=== PATIENT | female | born 1945 | race Caucasian/White ===

== ENCOUNTER 2018-06-08 13:30 | Outpatient (REF) | payer MEDICARE, OTHER, SELFPAY ==
[2018-06-08 14:11] LABS: ALT 30 U/L (12-78); AST 24 U/L (15-37); Albumin 3.9 g/dL (3.4-5.0); Alkaline Phosphatase 80 U/L (46-116); Anion Gap 7.6 mmol/L (3-11); BUN 24 mg/dL (7-18); Bilirubin, Total 0.3 mg/dL (0.2-1.0); CO2 28.4 mmol/L (21.0-32.0); CREATININE 0.82 mg/dL (0.55-1.02); Calcium 9.2 mg/dL (8.5-10.1); Chloride 105 mmol/L (98-107); Cholesterol 228 mg/dL (50-200); Glucose 98 mg/dL (70-100); HDL Cholesterol 76 mg/dL (40-60); LDL CHOLESTEROL 138 mg/dL (<100); Potassium 4.6 mmol/L (3.5-5.1); Sodium 141 mmol/L (136-145); Total Protein 7.2 g/dL (6.4-8.2); Triglyceride 109 mg/dL (30-150)
[2018-06-08 14:51] LABS: HCT 43.1 % (36.0-46.0); HGB 14.1 g/dL (12.0-15.5); Mean Corp. HGB Concentration 32.7 g/dL (32.0-36.0); Mean Corpuscular Volume 94.7 fL (80-95); Mean Platelet Volume 11.3 fL (8.0-11.0); Platelet Count 258 x1000/uL (130-400); RBC 4.55 m/cumm (4.00-5.20); RBC Distribution Width 13.2 % (11.7-14.6); White Blood Cell Count 6.12 k/cumm (4.4-10.8)
== END 2018-06-08 13:50 ==
LOC: NCHCN 13:30
PROVIDERS: Visit Provider Nurse Practitioner
DX: E78.5 Hyperlipidemia, unspecified; M85.80 Other specified disorders of bone density and structure, unspecified site
CPT/HCPCS: 80053; 80061; 83721; 85027

== ENCOUNTER 2018-07-10 00:47 | Outpatient (CLI) | payer MEDICARE, OTHER, SELFPAY ==
--- NOTE | 2018-07-10 13:20 | DI.MAMMO_ITS ---
SYMPTOMS/DIAGNOSIS: SCREENING, Z12.31, [facility], Z00.00 MAMMOGRAM: Mammograms were interpreted according to the usual protocol including computer analysis with CAD system, tomosynthesis and C view imaging. The breasts are of moderate density with fairly symmetrical distribution of fibroglandular tissue. No dominant mass or clumped microcalcification identified in either breast. Current examination is compared with the previous examinations including June 2017 and there has been no gross interval change in appearance in comparison with the previous studies. CONCLUSION: No specific evidence of malignancy at this time. Routine screening examinations are suggested at yearly intervals in this age group according to the ACS/ACR guidelines. Category 1, breast density category B. SA ASSESSMENT OF FINDINGS: Negative. Category 1. Patient will receive a letter notifying them of these results. BI-RADS category B. There are scattered areas of fibroglandular density.
== END 2018-07-10 01:07 ==
PROVIDERS: Visit Provider Nurse Practitioner
DX: Z12.31 Encounter for screening mammogram for malignant neoplasm of breast (principal)
CPT/HCPCS: 77063; 77067

== ENCOUNTER 2018-09-05 11:29 | Outpatient (REF) | payer MEDICARE, OTHER, SELFPAY ==
[2018-09-05 12:40] LABS: Cholesterol 203 mg/dL (50-200); HDL Cholesterol 76 mg/dL (40-60); LDL CHOLESTEROL 103 mg/dL (<100); Triglyceride 78 mg/dL (30-150)
== END 2018-09-05 11:49 ==
LOC: NCHCN 11:29
PROVIDERS: Visit Provider Nurse Practitioner
DX: E78.5 Hyperlipidemia, unspecified (principal)
CPT/HCPCS: 80061; 83721

== ENCOUNTER 2019-07-03 13:02 | Outpatient (REF) | payer MEDICARE, SELFPAY ==
[2019-07-03 14:42] LABS: Anion Gap 10.2 mmol/L (3-11); BUN 18 mg/dL (7-18); CO2 25.8 mmol/L (21.0-32.0); CREATININE 0.84 mg/dL (0.55-1.02); Calcium 9.4 mg/dL (8.5-10.1); Chloride 107 mmol/L (98-107); Glucose 104 mg/dL (70-100); Potassium 4.7 mmol/L (3.5-5.1); Sodium 143 mmol/L (136-145)
== END 2019-07-03 13:22 ==
LOC: NCHCN 13:02
PROVIDERS: PCP Nurse Practitioner Family; Visit Provider Nurse Practitioner Family
DX: E78.5 Hyperlipidemia, unspecified (principal)
CPT/HCPCS: 80048

== ENCOUNTER 2019-07-26 01:30 | Outpatient (CLI) | payer MEDICARE, SELFPAY ==
--- NOTE | 2019-07-26 15:59 | DI.DEXA_ITS ---
EXAM: XR DEXA BONE DENSITY W/WO MINOO INDICATION: ASYMPTOMATIC POSTMENOPAUSAL STATUS, Z78.0, OSTEOPENIA, M85.80. COMPARISON: DEXA BONE DENSITY WITH MINOO from 11/19/2009 TECHNIQUE: 2D digital imaging was performed. FINDINGS: The MINOO image shows no evidence of compression fractures. The bone mineral density measurements of the lumbar spine correspond to a total T-score of -1.1, in t he osteopenic range. This is not significantly changed from the previous exam. The L3 vertebral bod y was excluded due to overlying metallic artifact. The bone mineral density measurements of the left hip correspond to a total T-score of -0.7 and a fem oral neck T-score of -0.8, in the normal range. This represents an 8.0 percent decrease when compare d with 2009. The left forearm bone mineral density measurements correspond to a total T-score of -0.1 and T-score of the distal 3rd of 0.1, in the normal range. The forearm bone density has decreased by 9.6 percent when compared with the previous exam. IMPRESSION: Normal bone mineral density of left forearm and left hip with decreases when compared with the previo us exam. Stable osteopenia of the lumbar spine.
== END 2019-07-26 01:50 ==
PROVIDERS: PCP Nurse Practitioner Family; Visit Provider Nurse Practitioner Family
DX: M85.88 Other specified disorders of bone density and structure, other site (principal); Z78.0 Asymptomatic menopausal state
CPT/HCPCS: 77080

== ENCOUNTER 2019-09-11 02:40 | Outpatient (CLI) | payer MEDICARE, SELFPAY ==
--- NOTE | 2019-09-11 12:23 | DI.MAMMO_ITS ---
EXAM: MG MAMMO SCREENING CLINICAL HISTORY: SCREENING, Z12.39. TECHNIQUE: Full field digital CC and MLO mammographic images were obtained with 3D tomosynthesis and utilizing computer aided detection (CAD). COMPARISON: 2009 through 2017 FINDINGS: Breast Density - Category B - Scattered areas of fibroglandular density. Masses/Architectural Distortion: None seen. Microcalcifications: No suspicious pleomorphic-type calcifications are seen. Skin Thickening/Nipple Retraction: None. Axilla: Unremarkable. IMPRESSION: 1. BI-RADS category 1, negative. No significant interval change with no specific features of maligna ncy noted. 2. Unless there is more urgent need, screening mammography is recommended, as per [employer] guidelines. BI-RADS Cat 1 - Negative Breast Density - Category B - Scattered areas of fibroglandular density A negative radiographic report should not delay biopsy if a dominant or clinically suspicious mass is present. Up to ten percent of cancers are not identified on mammography. A negative report may reinforce clinical impression. Adenosis and dense breasts may obscure an underlying neoplasm. False positive reports average 6 to 10%. Patient will receive a letter notifying them of these results.
== END 2019-09-11 03:00 ==
PROVIDERS: PCP Nurse Practitioner Family; Visit Provider Nurse Practitioner Family
DX: Z12.31 Encounter for screening mammogram for malignant neoplasm of breast (principal)
CPT/HCPCS: 77063; 77067

== ENCOUNTER 2019-10-16 16:46 | Outpatient (REF) | payer MEDICARE, SELFPAY ==
[2019-10-16 20:18] LABS: HCT 43.7 % (36.0-46.0); HGB 14.3 g/dL (12.0-15.5); Mean Corp. HGB Concentration 32.7 g/dL (32.0-36.0); Mean Corpuscular Hemoglobin 30.7 pg (27.0-33.0); Mean Corpuscular Volume 93.8 fL (80-95); Mean Platelet Volume 10.7 fL (8.0-11.0); Platelet Count 303 x1000/uL (130-400); RBC 4.66 m/cumm (4.00-5.20); RBC Distribution Width 13.3 % (11.7-14.6)
[2019-10-16 20:41] LABS: Anion Gap 9.7 mmol/L (3-11); BUN 21 mg/dL (7-18); CO2 27.3 mmol/L (21.0-32.0); CREATININE 0.64 mg/dL (0.55-1.02); Calcium 9.7 mg/dL (8.5-10.1); Chloride 105 mmol/L (98-107); Glucose 93 mg/dL (74-106); Potassium 4.9 mmol/L (3.5-5.1); Sodium 142 mmol/L (136-145); TSH (W/Ref FT4) 0.84 uIU/mL (0.36-3.74)
== END 2019-10-16 17:06 ==
LOC: NCHCN 16:46
PROVIDERS: PCP Nurse Practitioner Family; Visit Provider Nurse Practitioner Family
DX: R00.2 Palpitations (principal)
CPT/HCPCS: 80048; 85027; 84443

== ENCOUNTER 2019-11-15 02:13 | Outpatient (CLI) | payer MEDICARE, SELFPAY ==
--- NOTE | 2019-11-21 09:11 | W.HOLTRPT ---
Date of service: 11/21/19 Time of Service: 09:12 Holter Monitor Report Holter Monitor Note: The patient underwent Holter monitoring for a period of 48 hours and 6 minutes The predominant rhythm was sinus. Average heart rate was 84. Minimum heart rate was 59 and maximum 140. There were rare ventricular ectopic beats. There was no ventricular tachycardia There were very rare atrial premature beats there was one atrial triplet. There was no supraventricular tachycardia Patient diary reported episodes of skipped beats. This corresponded to both PVCs and also to normal sinus rhythm
== END 2019-11-15 02:33 ==
PROVIDERS: PCP Nurse Practitioner Family; Visit Provider Nurse Practitioner Family
DX: I49.3 Ventricular premature depolarization (principal); I49.1 Atrial premature depolarization
CPT/HCPCS: 93225

== ENCOUNTER 2019-11-17 14:26 | Outpatient (CLI) | payer MEDICARE, SELFPAY | END 2019-11-17 14:46 | PROVIDERS: PCP Nurse Practitioner Family; Visit Provider Nurse Practitioner Family | DX: I49.3 Ventricular premature depolarization (principal); I49.1 Atrial premature depolarization | CPT/HCPCS: 93226 ==

== ENCOUNTER 2019-11-21 09:11 | Outpatient (CLI) | payer MEDICARE, SELFPAY | END 2019-11-21 09:31 | PROVIDERS: PCP Nurse Practitioner Family; Referring Provider Nurse Practitioner Family; Visit Provider Internal Medicine Cardiovascular Disease | DX: I49.3 Ventricular premature depolarization (principal); I49.1 Atrial premature depolarization | CPT/HCPCS: 93227 ==

== ENCOUNTER → 2020-03-03 10:43 | Outpatient (BNVA) | payer MEDICARE, SELFPAY | PROVIDERS: PCP Nurse Practitioner Family; Referring Provider Nurse Practitioner Family; Visit Provider Internal Medicine Cardiovascular Disease | DX: R00.2 Palpitations (principal); I34.0 Nonrheumatic mitral (valve) insufficiency | CPT/HCPCS: 99214 ==

== ENCOUNTER 2020-09-12 04:14 | Outpatient (CLI) | payer MEDICARE, SELFPAY ==
--- NOTE | 2020-09-12 13:38 | DI.MAMMO_ITS ---
EXAM: MG MAMMO SCREENING CLINICAL HISTORY: SCREENING,Z12.39 TECHNIQUE: Bilateral full field digital CC and MLO mammographic images were obtained with 3D tomosyn thesis and utilizing computer aided detection (CAD). COMPARISON: Available for comparison. FINDINGS: Masses/Architectural Distortion: None seen. Microcalcifications: No suspicious pleomorphic-type are seen. Skin Thickening/Nipple Retraction: None. IMPRESSION: 1. No significant interval change with no specific features of malignancy noted. 2. Unless there is more urgent need, screening mammography is recommended, as per [employer] guidelines. BI-RADS Category 1 - Negative Breast Density - Category B - Scattered areas of fibroglandular density Breast density category C or D implies that the patient has dense breast tissue. Dense breast tissue is very common and is not abnormal but dense breast tissue can make it harder to find cancer on a ma mmogram. Also, dense breast tissue may increase their breast cancer risk. This information about the result of the mammogram report was provided to the patient to raise their awareness. Use this report when you speak with the patient about their risks for breast cancer, which includes their family hist ory. At that time, you may recommend for more screening tests (Ultrasound or MRI) as they might be us eful based on their risk. A negative radiographic report should not delay biopsy if a dominant or clinically suspicious mass is present. Up to ten percent of cancers are not identified on mammography. A negative report may reinforce clinical impression. Adenosis and dense breasts may obscure an underlying neoplasm. False positive reports average 6 to 10%. Patient will receive a letter notifying them of these results.
== END 2020-09-12 04:34 ==
PROVIDERS: PCP Nurse Practitioner Family; Visit Provider Nurse Practitioner Family
DX: Z12.31 Encounter for screening mammogram for malignant neoplasm of breast (principal)
CPT/HCPCS: 77063; 77067

== ENCOUNTER 2021-08-31 08:38 | Outpatient (REF) | payer MEDICARE, SELFPAY ==
[2021-08-31 16:15] LABS: ALT 22 U/L (14-59); AST 18 U/L (15-37); Calculated LDL 127 mg/dL (<100); Cholesterol 228 mg/dL (<200); HDL Cholesterol 80 mg/dL (40-60); Triglyceride 109 mg/dL (<150)
== END 2021-08-31 08:39 | disposition home or self-care (01) ==
LOC: NCHCN 08:38
PROVIDERS: PCP Nurse Practitioner Family; Visit Provider Nurse Practitioner Family
DX: E78.5 Hyperlipidemia, unspecified (principal)
CPT/HCPCS: 80061; 84450; 84460

== ENCOUNTER 2021-09-14 00:25 | Outpatient (CLI) | payer MEDICARE, SELFPAY ==
--- NOTE | 2021-09-14 11:21 | DI.MAMMO_ITS ---
Exam(s) MAMMO SCREENING EXAM: MAMMO SCREENING CLINICAL HISTORY: SCREENING MAMMO FOR BREAST CANCER Z12.31 TECHNIQUE: Mammograms were interpreted according to the usual protocol including computer analysis w [employer] CAD system, tomosynthesis and C-view imaging. COMPARISON: 2011 through 2019 FINDINGS: The breasts are composed of scattered fibroglandular densities, Breast Density category B. No suspicious masses or suspicious microcalcifications are seen. No skin thickening or abnormal axillary lymph nodes are seen. There has been no significant change from prior exams. IMPRESSION: BI-RADS Category 1, Negative mammogram Yearly screening mammography is recommended. Breast Density - Category B, scattered fibroglandular densities. A negative radiographic report should not delay biopsy if a dominant or clinically suspicious mass is present. Up to ten percent of cancers are not identified on mammography. A negative report may reinforce clinical impression. Adenosis and dense breasts may obscure an underlying neoplasm. False positive reports average 6 to 10%. Patient will receive a letter notifying them of these results.
== END 2021-09-14 00:45 ==
PROVIDERS: PCP Nurse Practitioner Family; Visit Provider Nurse Practitioner Family
DX: Z12.31 Encounter for screening mammogram for malignant neoplasm of breast (principal)
CPT/HCPCS: 77063; 77067

== ENCOUNTER 2021-10-09 13:40 | Outpatient (REF) | payer MEDICARE, SELFPAY ==
[2021-10-09 15:08] LABS: HGB 13.7 g/dL (11.2-15.7); MCH 30.9 pg (27.0-33.0); MCHC 32.6 % (32.0-36.0); MCV 94.6 fL (80-95); MPV 10.8 fL (8.0-11.0); Platelet Count 265 10^3/uL (130-400); RBC 4.44 10^6/uL (3.93-5.22); RDW 13.1 % (11.7-14.6); RDW-SD 45.5 fL; WBC 7.11 10^3/uL (4.4-10.8)
[2021-10-09 15:41] LABS: Anion Gap 9.2 mmol/L (3-11); BUN 20 mg/dL (7-18); CO2 25.8 mmol/L (21.0-32.0); CREATININE 0.7 mg/dL (0.55-1.02); Calcium 9.8 mg/dL (8.5-10.1); Chloride 104 mmol/L (98-107); Glucose 102 mg/dL (74-106); Magnesium 1.9 mg/dL (1.8-2.4); Potassium 4.3 mmol/L (3.5-5.1); Sodium 139 mmol/L (136-145); TSH (W/Ref FT4) 0.97 uIU/mL (0.36-3.74)
== END 2021-10-09 13:41 | disposition home or self-care (01) ==
LOC: NCHCN 13:40
PROVIDERS: PCP Nurse Practitioner Family; Visit Provider Family Medicine
DX: R00.2 Palpitations (principal); R35.0 Frequency of micturition
CPT/HCPCS: 80048; 85027; 83735; 84443

== ENCOUNTER 2021-12-28 09:00 | Outpatient (CLI) | payer MEDICARE, SELFPAY ==
--- NOTE | 2021-12-28 09:00 | RT.EKG_ITS ---
APPROVED REPORT Exam: Resting ECG Reason for Exam: palpitations Patient Location: O HR:80 bpm ECG Measurements Heart Rate 80 AXIS VA 129 P 35 QRSd 80 QRS 6 QT 361 T 34 QTc 417 Conclusion Sinus rhythm...normal P axis, V-rate 50- 99 Normal Electrocardiogram
== END 2021-12-28 09:01 | disposition home or self-care (01) ==
LOC: DI.CARD 09:01
PROVIDERS: PCP Nurse Practitioner Family; Visit Provider Internal Medicine Cardiovascular Disease
DX: R00.2 Palpitations (principal)
CPT/HCPCS: 93010

== ENCOUNTER → 2021-12-28 13:07 | Outpatient (BNVA) | payer MEDICARE, SELFPAY | PROVIDERS: PCP Nurse Practitioner Family; Referring Provider Nurse Practitioner Family; Visit Provider Internal Medicine Cardiovascular Disease | DX: E78.5 Hyperlipidemia, unspecified (principal); I49.3 Ventricular premature depolarization; R00.2 Palpitations | CPT/HCPCS: 93005; 99214; 99213 ==

== ENCOUNTER → 2022-01-29 13:06 | Outpatient (BNVA) | payer MEDICARE, SELFPAY | PROVIDERS: PCP Nurse Practitioner Family; Referring Provider Nurse Practitioner Family; Visit Provider Internal Medicine Cardiovascular Disease | DX: R00.2 Palpitations (principal) | CPT/HCPCS: 99213 ==

== ENCOUNTER 2023-03-04 10:04 | Outpatient (CLI) | payer MEDICARE, SELFPAY ==
--- NOTE | 2023-03-04 09:45 | DI.RAD_ITS ---
Exam(s) XR KNEE RT 3V AP,LAT,ELIZABETH EXAM: XR KNEE RT 3V AP,LAT,ELIZABETH CLINICAL HISTORY: RIGHT KNEE PAIN. TECHNIQUE: 2D digital imaging was performed of the right knee. Three views obtained. Merchant, AP an d lateral views were obtained. COMPARISON: No exams were available for comparison FINDINGS: BONES: No acute fracture is present. No bony destructive lesion is seen. JOINTS: There is marked narrowing of the patellofemoral and lateral femoral tibial joints. Moderate periarticular spurring is also seen in the patellofemoral and lateral femoral tibial joints. There i s a small joint effusion. There is a genu valgus. SOFT TISSUE: Normal. IMPRESSION: Marked osteoarthritis of the knee. DATA REPOSITORY: RADIATION DOSE DELIVERED:
== END 2023-03-04 10:05 | disposition home or self-care (01) ==
LOC: DIORS 10:04
PROVIDERS: PCP Nurse Practitioner Family; Referring Provider Nurse Practitioner Family; Visit Provider Physician Assistant
DX: M17.11 Unilateral primary osteoarthritis, right knee
CPT/HCPCS: 73562; 99214

== ENCOUNTER 2023-04-21 03:59 | Outpatient (CLI) | payer MEDICARE, SELFPAY ==
[2023-04-21 16:08] LABS: HCT 42.7 % (36.0-46.0); HGB 14.3 g/dL (11.2-15.7); MCH 31.4 pg (27.0-33.0); MCHC 33.5 % (32.0-36.0); MCV 94 fL (80-95); MPV 10.5 fL (8.0-11.0); Platelet Count 275 10^3/uL (130-400); RBC 4.55 10^6/uL (3.93-5.22); RDW 13.2 % (11.7-14.6); RDW-SD 45.2 fL; WBC 6.92 10^3/uL (4.4-10.8)
[2023-04-21 16:41] LABS: Anion Gap 9.8 mmol/L (3-11); BUN 19 mg/dL (7-18); CO2 26.2 mmol/L (21.0-32.0); CREATININE 0.8 mg/dL (0.55-1.02); Calcium 9.7 mg/dL (8.5-10.1); Chloride 105 mmol/L (98-107); Estimated GFR 75.37 (mL/min/1.73m2); Glucose 103 mg/dL (74-106); Potassium 4.7 mmol/L (3.5-5.1); Sodium 141 mmol/L (136-145)
== END 2023-04-21 04:00 | disposition home or self-care (01) ==
LOC: LBO 03:59 → LBN 15:34
PROVIDERS: Physician Assistant; PCP Nurse Practitioner Family; Visit Provider Student in an Organized Health Care Education/Training Program
DX: M25.561 Pain in right knee (principal); M17.11 Unilateral primary osteoarthritis, right knee; Z01.818 Encounter for other preprocedural examination; Z01.812 Encounter for preprocedural laboratory examination
CPT/HCPCS: 80048; 85027

== ENCOUNTER 2023-04-21 15:29 | Outpatient (CLI) | payer MEDICARE, SELFPAY ==
--- NOTE | 2023-04-21 13:00 | DI.RAD_ITS ---
Exam(s) XR STANDING ALIGNMENT EXAM: XR STANDING ALIGNMENT CLINICAL HISTORY: pre-op planning. TECHNIQUE: 2D digital imaging was performed. COMPARISON: CR XR KNEE RT 3V AP,LAT,ELIZABETH from 03/04/2023 FINDINGS: There are no fractures. Again noted is significant valgus deformity of the right knee due to bone-on -bone narrowing of the lateral compartment. Medial compartment is widened. The actual knee joint sp mo on the right is approximately 1.2 cm below the joint space of the opposite-left knee. In left kn ee there is only mild narrowing of both medial lateral compartments. There is moderate narrowing of the hip joint space on the right side and slightly milder narrowing of the left hip joint space. Ankles appear unremarkable. No osseous lesions. IMPRESSION: A findings as above, including prominent valgus deformity. DATA REPOSITORY: RADIATION DOSE DELIVERED:
== END 2023-04-21 15:30 | disposition home or self-care (01) ==
LOC: DIORS 15:29
PROVIDERS: PCP Nurse Practitioner Family; Referring Provider Nurse Practitioner Family; Visit Provider Physician Assistant
DX: M17.11 Unilateral primary osteoarthritis, right knee (principal)
CPT/HCPCS: 77073

== ENCOUNTER 2023-04-26 07:18 | Day surgery (SDC) | payer MEDICARE, SELFPAY ==
[2023-04-26] VITALS (18 sets, daily range): BP systolic 84–146; BP diastolic 45–99; PULSE 60–77; RESP 14–20; TEMP 36.1–36.8; O2SAT 92–97; BMI 27.4
--- NOTE | 2023-04-26 06:52 | W.ANESPRE ---
General Info Date of Service Date Performed: 04/26/23 Height: 5 ft 4 in Weight: 72.575 kg Body Mass Index (BMI): 27.4 Surgical Procedure: Operation Date: 04/26/23 09:40 Proposed Procedure Side Surgeon p Knee Total Arthroplasty w/OrthAlign, Cementless PS Right Mark Cowan MD Meds Allergies and Home Medications Allergies Allergy/AdvReac Type Severity Reaction Status Date / Time benzocaine Allergy Intermediate Skin Rash Verified 04/26/23 07:43 penicillin Allergy Intermediate Skin Rash Verified 04/26/23 07:43 Sulfa (Sulfonamide Allergy Intermediate Skin Rash Verified 04/26/23 07:43 Antibiotics) Home Medication Medication Instructions Recorded calcium carbonate 600 mg calcium 1 tab PO BID 05/12/15 (1,500 mg) tablet cholecalciferol (vitamin D3) 50 1 tab PO DAILY 05/12/15 mcg (2,000 unit) tablet calcium 400 mg-magnesium ox 133 1 cap PO DAILY 12/25/21 mg-vit D3 6.67 mcg-boron 1 mg capsule glucosamine 750 mg-chondroit 100 1 tab PO BID 12/25/21 mg-msm-D3 25 iju-sruv-bjf bor tablet ketoconazole 2 % topical cream 1 applic topical DAILY 12/25/21 omeprazole 20 mg capsule,delayed 20 mg PO DAILY 01/29/22 release metoprolol succinate 25 mg 12.5 mg PO BID 01/26/23 tablet,extended release 24 hr acetaminophen 500 mg tablet 1,000 mg PO TID #90 tabs 04/26/23 aspirin 81 mg tablet,delayed 81 mg PO BID #60 tabs 04/26/23 release celecoxib 200 mg capsule 200 mg PO BID #60 caps 04/26/23 dexamethasone 4 mg tablet 4 mg PO DAILY #2 tabs 04/26/23 gabapentin 300 mg capsule 300 mg PO QHS #14 caps 04/26/23 oxycodone 5 mg tablet 5 mg PO Q4H PRN pain #20 tabs 04/26/23 Current Visit Medications: Current Medications Generic Name Dose Route Start Last Admin Trade Name Freq PRN Reason Stop Dose Admin Acetaminophen 1,000 mg 04/26/23 06:00 Acetaminophen 500 Mg Tab PO 05/26/23 05:59 PREOP ABRAHAM Celecoxib 400 mg 04/26/23 06:00 Celecoxib 200 Mg Cap PO 05/26/23 05:59 PREOP ABRAHAM Gabapentin 300 mg 04/26/23 06:00 Gabapentin 300 Mg Cap PO 05/26/23 05:59 PREOP ABRAHAM Ringer's Solution 1,000 mls @ 80 mls/hr 04/26/23 06:00 IV 05/25/23 23:59 INFUSION ABRAHAM Cefazolin Sodium/Dextrose 2 gm in 50 mls @ 100 mls/hr 04/26/23 06:00 Ancef Duplex IVPB 04/26/23 16:00 PREOP ABRAHAM IV Miscellaneous Supplies 1 each 04/26/23 06:00 Iv Access IV 05/25/23 23:59 DIRECTED ABRAHAM Sodium Chloride 0 ml 04/26/23 06:00 Normal Saline Flush 10 Ml Syr IV 05/25/23 23:59 PRN PRN Sodium Chloride 0 ml 04/26/23 06:00 Normal Saline 10 Ml Vial IJ 05/25/23 23:59 DIRECTED PRN Sterile Water 0 ml 04/26/23 06:00 Water,Injection,Sterile 10 Ml Vial IJ 05/25/23 23:59 DIRECTED PRN PFSH Active Problems Active Problems: Problem Status Onset Code Degenerative joint disease of right knee M17.11 Premature ventricular contractions I49.3 Hyperlipidemia E78.5 Osteopenia M85.80 Lumbar radiculopathy M54.16 GERD (gastroesophageal reflux disease) K21.9 PAC (premature atrial contraction) I49.1 Urinary frequency R35.0 Actinic keratosis L57.0 Palpitations R00.2 Surgical History Surgical History (Updated 04/26/23 @ 07:44 by Sarah Kathleen) History of detached retina repair History of hysterectomy History of knee surgery Right knee patella stabilizing 1998 Dr Vora Hx of cataract removal with insertion of prosthetic lens b/l Hx of cholecystectomy Tobacco Smoking/Tobacco Use Status: Never Alcohol Alcohol Intake: never Substance Use Substance use: Never Substance use type: does not use Vital Signs and Lab Results Vital Signs Most Recent Vital Signs in EMR: Temp Pulse Resp BP Pulse Ox 36.2 C L 74 15 146/99 H 95 04/26/23 08:40 04/26/23 08:40 04/26/23 08:40 04/26/23 08:40 04/26/23 08:40 Lab Results Blood Type / Crossmatch: No Data to Display Complete Blood Count: White Blood Count 6.92 10^3/uL (4.4-10.8) 04/21/23 13:57 Red Blood Count 4.55 10^6/uL (3.93-5.22) 04/21/23 13:57 Hemoglobin 14.3 g/dL (11.2-15.7) 04/21/23 13:57 Hematocrit 42.7 % (36.0-46.0) 04/21/23 13:57 Platelet Count 275 10^3/uL (130-400) 04/21/23 13:57 Complete Metabolic Panel: Sodium 141 mmol/L (136-145) 04/21/23 13:57 Potassium 4.7 mmol/L (3.5-5.1) 04/21/23 13:57 Chloride 105 mmol/L (98-107) 04/21/23 13:57 Carbon Dioxide 26.2 mmol/L (21.0-32.0) 04/21/23 13:57 BUN 19 mg/dL (7-18) H 04/21/23 13:57 Creatinine 0.8 mg/dL (0.55-1.02) 04/21/23 13:57 Est GFR (CKD-EPI 2020) 75.37 (mL/min/1.73m2) 04/21/23 13:57 Calcium 9.7 mg/dL (8.5-10.1) 04/21/23 13:57 Glucose 103 mg/dL (74-106) 04/21/23 13:57 Liver Function Panel: No Data to Display Coagulation Panel: No Data to Display Cardiac Panel: No Data to Display Arterial Blood Gas: No Data to Display Venous Blood Gas: No Data to Display Pancreas Panel: No Data to Display Thyroid Panel: No Data to Display Infectious Disease: No Data to Display Blood Cultures: No Data to Display Toxicology Panel: No Data to Display Imaging and Studies Imaging and Studies Study information below may be from another EMR and interpreted by another provider. Please see original notes in EMR for more complete details. EKG Summary: EKG PATIENT NAME: Essie Fatima #: [id number] ORDERING PROVIDER: Suresh Bueno M.D. PRIMARY CARE PROVIDER:MELANIE ABEBE NP DATE/TIME OF SERVICE: 12/28/21 1220 : 4PERFORMING LOCATION: DI.CARD APPROVED REPORT Exam: Resting ECG Reason for Exam: palpitations Patient Location: O HR:80 bpm ECG Measurements Heart Rate 80 AXIS W[place] 129 P 35 QRSd 80 QRS 6 QT 361 T34 QTc 417 Conclusion Sinus rhythm...normal P axis, V-rate 50- 99 Normal Electrocardiogram <Electronically signed by SURESH BUENO MD in OV> E-Sign Date: 12/28/21 E-Sign Time: 1324 Stress Test Summary: Please see scanned document: updated valvular findings from 2016 ECHO. progressed from moderate to trace. METS 8. Echocardiogram Summary: Patient Name: ESSIE FATIMA #: [id number]: LAKSHMI Ordering Provider: LUZ ANG M.D. : [facility] Primary Care Provider: LUZ ANG M.D.Date of Exam: 08/06/16ex: F : 1945ge: 70 Exam(s) [id number] US:Echocardiogram Heart *[facility]* *[facility]* [address] [place] [address] Date of study: 08/06/2016 Transthoracic Echocardiography M-mode, complete 2D, complete spectral Doppler, and color Doppler *STUDY CONCLUSIONS* Summary: 1. Left ventricle: The cavity size was normal. Wall thickness was normal. Systolic function was normal. The estimated ejection fraction was 60-65%. Wall motion was normal; there were no regional wall motion abnormalities. 2. Right ventricle: The cavity size was normal. Systolic function was normal. 3. Mitral valve: Mildly thickened leaflets. Mobility was not restricted. Possible redundant chordae/torn chordae coming off anterior mitral valve leaflet going back into LA (seen best on image 158). There was mild regurgitation. 4. Tricuspid valve: There was moderate regurgitation. 5. Inferior vena cava: The vessel was normal in size. The respirophasic diameter changes were in the normal range (greater than or equal to 50%). *PATIENT PRESENTATION* Height: 162.6cm ((64in) ) S/D Pressure: Weight: 74.8kg ((164.7lb) ) BSA: 1.86m\S\2 Test start time: 08:15 AM. Test stop time: 09:15 AM. REFERRING Luz Ang* PERFORMING Unknown PERFORMING [facility] SLOT KEY PERSON Imelda Galan *PROCEDURE DATA* Procedure information: [id number] This study was interpreted by [facility]. Pertinent images and digital data are archived for permanent storage and are available for subsequent review. No prior study was available for comparison. Study status: Routine. Transthoracic echocardiography. M-mode, complete 2D, complete spectral Doppler, and color Doppler. A Transthoracic Echocardiogram was performed. Scanning was performed from the parasternal, apical, subcostal, and suprasternal notch acoustic windows. Images were obtained using an [id number] cardiac ultrasound machine. Image quality was adequate. Study completion: The patient tolerated the procedure well. There were no complications. History: PMH: PAC's. *CARDIAC ANATOMY* Left ventricle: The cavity size was normal. Wall thickness was normal. Systolic function was normal. The estimated ejection fraction was 60-65%. Wall motion was normal; there were no regional wall motion abnormalities. Diastolic parameters were normal. There was no evidence of elevated ventricular filling pressure by Doppler parameters. Aortic valve: Trileaflet; mildly thickened leaflets. Mobility was not restricted. Doppler: Transvalvular velocity was within the normal range. There was no stenosis. There was no regurgitation. VTI ratio of LVOT to aortic valve: 0.65. Valve area (VTI): 2.2cm\S\2. Valve area (Vmax): 2.1cm\S\2. Aorta: Aortic root: The aortic root was normal in size. Ascending aorta: The ascending aorta was normal in size. Mitral valve: Mildly thickened leaflets. Mobility was not restricted. Possible redundant chordae/torn chordae coming off anterior mitral valve leaflet going back into LA (seen best on image 158). Doppler: Transvalvular velocity was within the normal range. There was no evidence for stenosis. There was mild regurgitation. Valve area by pressure half-time: 3.4cm\S\2. Indexed valve area by pressure half-time: 1.8cm\S\2/m\S\2. Left atrium: The atrium was normal in size. Right ventricle: The cavity size was normal. Systolic function was normal. Pulmonic valve: The valve appears to be grossly normal. Doppler: Transvalvular velocity was within the normal range. There was no evidence for stenosis. There was no significant regurgitation. Tricuspid valve: Structurally normal valve. Doppler: Transvalvular velocity was within the normal range. There was no evidence for stenosis. There was moderate regurgitation. Pulmonary artery: The main pulmonary artery was normal-sized. Pulmonary systolic pressure was within the normal range, in the range of 35mm Hg to 40mm Hg. Right atrium: The atrium was normal in size. Pericardium: There was no pericardial effusion. Systemic veins: Inferior vena cava: The vessel was normal in size. The respirophasic diameter changes were in the normal range (greater than or equal to 50%). Baseline ECG: Normal sinus rhythm. Measurements Left ventricle Value Reference LV ID, ED, PLAX 4.2 cm 3.5 - 6.0 LV ID, ES, PLAX 2.9 cm 2.1 - 4.0 LV PW thickness, ED, PLAX 0.9 cm LV ejection fraction, 1-p A2C 66 % LV ejection fraction, 1-p A4C 65 % LV IVRT, DP 98 ms 60 - 100 Ventricular septum Value Reference IVS thickness, ED, PLAX 0.8 cm LVOT Value Reference LVOT ID, A-P 2.1 cm LVOT area 3.3 cm\S\2 LVOT peak velocity, S 0.77 m/sec LVOT VTI, S 17.5 cm LVOT mean gradient, S 1.5 mm Hg Aortic valve Value Reference VTI ratio, LVOT/AV 0.65 Aortic valve area, VTI 2.2 cm\S\2 Aortic valve area, peak velocity 2.1 cm\S\2 Aorta Value Reference Aortic root ID, ED 3.2 cm Ascending aorta ID, A-P, S 3.2 cm RVOT Value Reference RVOT VTI, S 13.7 cm Left atrium Value Reference LA area, ES, A4C 18 cm\S\2 8.8 - 23.4 LA volume/bsa, ES, 1-p A4C 29 ml/m\S\2 LA/aortic root ratio 1.13 Mitral valve Value Reference Mitral E-wave peak velocity 0.73 m/sec Mitral A-wave peak velocity 0.68 m/sec Mitral pressure half-time 65 ms Mitral E/A ratio, peak 1.08 Mitral valve area, PHT, DP 3.4 cm\S\2 Pulmonary veins Value Reference Pulmonary vein peak velocity, S 0.63 m/sec Pulmonary vein peak velocity, D 0.39 m/sec Pulmonary vein velocity ratio, peak, 1.61 S/D Pulmonary vein A-wave reversal peak 0.25 m/sec velocity Pulmonary vein A-wave reversal duration 149 ms Tricuspid valve Value Reference Tricuspid regurg peak velocity 2.8 m/sec Tricuspid peak RV-RA gradient 30.8 mm Hg Anesthesia Assessment and Plan Anesthesia History Personal History: No History of Anesthesia Complications Family History: No Family History of Anesthesia Complications Exercise Tolerance Exercise Tolerance: Metabolic Equivalents>4 Pertinent Negatives Pertinent Negatives: No Symptoms of GERD, No Major Cardiovascular Symptoms or Complaints, No Major Pulmonary Symptoms or Complaints and No History of CVA/TIA Cardiac & Pulmonary Exam Cardiac Exam: Normal S1/S2 Heart Sounds Pulmonary Exam: Clear Bilateral Breath Sounds Implantable Cardiac Device Does patient have a Pacemaker or an ICD?: No Airway Exam Known Difficult Airway: No Mallampati Class: 2 Mouth Opening: Normal (> 3cm) Thyromental Distance: Greater than 3 cm Neck Range of Motion: Full ROM Neck Circumference: Normal Teeth Condition: Normal Dentition ASA Classification ASA Score: ASA 2 Emergency Case?: No NPO Status NPO Status: NPO Clears >2 hours, Solids >8 hours Anesthesia Plan Resuscitation Status: Full Code Anesthesia Technique: Spinal Anesthesia Airway Planned: Natural Airway Pain Management: Surgeon and patient request nerve block Monitors Used: Standard Monitors
[2023-04-26] MEDS: Gabapentin 300 MG CAP PO (08:06)
[2023-04-26] MEDS: Celecoxib 200 MG CAP 400 MG PO (08:06)
[2023-04-26] MEDS: Acetaminophen 500 MG TAB 1000 MG PO (08:06)
[2023-04-26] MEDS: Lactated Ringers 1,000 ML 80 ML IV (08:25)
[2023-04-26] MEDS: ceFAZolin 2 GM/50 ML BAG IVPB (09:10)
--- NOTE | 2023-04-26 09:24 | W.ANESNERVE ---
Nerve Block Single Injection Procedure Date and Time Date Performed: 04/26/23 Procedure Start: 08:40 Location Where Procedure Performed Procedure Location: Day Surgery Unit Reason Performed: Postoperative Analgesia Requesting Provider: Mark Cowan Timeout Performed Timeout Performed: Yes Monitoring Used ECG, Blood Pressure and SpO2 Sterility Sterility: Hand Hygiene, Surgical Cap, Surgical Mask and Chlorhexidine Sedation Given During Procedure Sedation Given (Indicate Dose Given): No Sedation given Patient Mental Status Patient Mental Status: Awake Nerve Block 1st Nerve Block: Laterality: Right Block Type: Adductor Canal Ultrasound Image Saved?: Yes Needle / Catheter Used: 100mm SonoPlex II Local Anesthetic Bolus (Indicate Dose Given): Lidocaine used for local infiltration of skin, Injected in 3-5ml increments after negative blood aspiration and Bupivacaine 0.25% Dose:: 15 ml Additives (Indicate Dose Given): None Ultrasound: Sterile probe cover and gel used Nerve Stimulator: Supplement to Ultrasound use and No twitch or parasthesia noted < 0.5 mA Paresthesia: None Post Procedure Pain score (0-10): 0 Procedure Tolerated: No Complications and Patient tolerated well Procedure Outcome: Successful Performed By: Felix Han
[2023-04-26] MEDS: Normal Saline 10 ML VIAL IJ (11:33)
[2023-04-26] MEDS: HYDROmorphone 2 MG/ML SYR IVP ×2 (11:33→11:48)
[2023-04-26] MEDS: Ondansetron 4 MG/2 ML VIAL IVP (12:08)
--- NOTE | 2023-04-26 13:34 | W.ANESPOSTOP ---
Postoperative Evaluation Date, Time and Location Date Performed: 04/26/23 Time Performed: 13:34 Patient Location: Day Surgery Unit Vital Signs Most Recent Imported Vital Signs: Most Recent Vital Signs Temp Pulse Resp BP Pulse Ox 36.4 C L 63 16 115/74 95 04/26/23 12:53 04/26/23 12:53 04/26/23 12:53 04/26/23 12:53 04/26/23 12:53 Pain Score Most Recent Pain Score: Most Recent Pain Score Pain Level 2 04/26/23 12:53 Assessment Mental Status: Awake (Alert & Oriented to Patient Baseline) Airway and Respiratory Function: Abnormal Respiratory exam (See explanation) (Desaturating when falling asleep, asked DSU RN to place a NC on patient. ) Cardiovascular Function: Hemodynamically Stable Hydration Status: Adequately Hydrated Nausea & Vomiting: No Nausea or Vomiting Pain: Pain is tolerable per patient Peripheral Nerve Block: Regional nerve block not resolved at time of post operative discharge
--- NOTE | 2023-04-26 13:58 | W.PM.OP ---
Date of service: 04/26/23 Time of Service: 11:00 Operative Note Operative Note DATE OF PROCEDURE: 04/26/23 PRE-OP DIAGNOSIS: Right Knee Osteoarthritis with Severe Valgus Deformity POST-OP DIAGNOSIS: same PROCEDURE: Right Total Knee Replacement with Intraoperative Navigation SURGEON: Mark Cowan PAPER COATER: Shaquille Mendez ANESTHESIA TYPE: Spinal Refer to Anesthesia Record ESTIMATED BLOOD LOSS: 100 PATHOLOGY: none sent TOURNIQUET TIME: 0 COMPLICATIONS: None Patient was transported to: PACU Patient's condition: stable Implants: 1. Depuy Attune Cementless Posterior Stabilized Femoral Component, Size 5 2. Depuy Attune Cementless Fixed Bearing Tibial Component, Size 5 3. Depuy Attune 5x10 PS/FB Poly 4. Depuy Attune Patellar Component, Size 29 Indications: I have seen Essie in clinic for symptoms of RIGHT knee arthritis, confirmed with radiographic findings. Essie has exhausted nonoperative methods and was having significant limitations in daily function and desired better function and less pain. I discussed the technical details of a knee replacement. I explained the risks of the procedure to include, but not limited to, bleeding, infection, pain, stiffness, fracture, damage to nerves and vessels, damage to muscles and tendons, loosening, need for repeat procedure, blood clot and cardiopulmonary demise. Despite these risks, she elected to proceed. Findings: There was significant signs of arthritis throughout the knee, focused on the lateral knee. There was a significant valgus deformity which was quite challenging for balancing purposes. Procedure Description: Essie was greeted in the preoperative holding area where the correct side was identified and marked. The consent was reviewed with the patient and signed. The history and physical was updated. All questions were answered. Preoperative mediacations were administered: Acetaminophen 1000mg, Celebrex 400mg, and Gabapentin 300mg. An adductor canal block was then administered by the anesthesia team in the PACU. She was taken back to the operating room. A spinal anesthestic was then administered. The patient was placed into the supine position on the operating room table. A nonsterile tourniquet was placed high onto the leg. Posts were placed for positioning during the procedure. All bony prominences were well padded. Prophylactic antibiotics in the form of Cefazolin were administered. 1g of Tranxemic Acid was given intravenously within 30 minutes of incision. The right leg was then prepped with Chloraprep and draped in a standard fashion with impervious stockinette. A second prep with Chloraprep was performed prior to application of Iodine impregnated skin protection. A timeout to confirm correct identity, side and site, procedure, allergies, anesthesia, and medical concerns was performed. With the knee in some flexion, a midline incision was made overlying the knee. Full thickness skin flaps were raised once the extensor mechanism was encountered. These were raised medially and laterally. Any bleeding was controlled with electrocautery. Once the extensor mechanism was fully exposed, a medial parapatellar arthrotomy was performed in a flexed position. All bleeding from the arthrotomy and the geniculate arteries was coagulated. A medial subperiosteal peel was performed with electrocautery to the midcoronal plane. The fat pad was removed while keeping the patellar tendon protected. The anterior distal femur synovium was removed for later visualization. The ACL and PCL were resected and the anterior horn of the lateral meniscus was transected. The knee was then flexed with the patella everted. Large osteophytes from the tibia were removed. Large osteophytes from the femur were removed. The capsular attachments and IT band to the proximal tibia given the valgus deformity. A single starting pin was then placed 1cm anterior to the PCL insertion and the notch in the direction of the femoral head. The OrthoAlign device was applied over the pin. It was oriented to be in line with the epicondylar axis and the trochlear groove. It was then pinned into place. The navigation computer was then turned on and calibrated. The distal femur cut was set at 0.5 degrees valgus and 4 degrees of flexion. The distal femur cutting guide then was positioned for a 9mm cut. The distal femur was cut with an oscillating saw while protecting the soft tissues. The tibia was then addressed. The OrthoAlign device was placed over the tibial tubercle and medial tibia and secured into position. Once again, OrthoAlign was calibrated and then set for a 0.5 degrees of varus cut and 4 degrees of posterior slope. With this locked into position, the cut thickness stylus was used to assess cut thickness. The lateral side, most involved side, was set for a 2 mm cut. This was then held in position and pinned into place with 2 additional pins and a cross pin for stability. The medial and lateral collateral ligaments were protected and the cut was performed. With this completed, it was assessed and noted to be of appropriate dimensions. The guide and OrthoAlign was removed. A spacer block was inserted and the knee was brought into extension to ensure enough space was present. This was quite tight laterally. I then continue with releasing the bulk of the iliotibial band attachments and around the periphery of the proximal tibia to the posterior lateral corner. I also reposition the Ortholign guide and recut the tibia at 0 degrees of varus. However, this still did not help out significantly with the asymmetry between medial lateral and therefore went to a 1 degree valgus cut. This along with a soft tissue releases laterally, all the IT band capsular attachments, help obtain better balance. The Orthoalign gap balancing device was then placed in extension. This was used to ensure that the ligaments were properly balanced with up to 2 to 3 mm laxity laterally compared medially. The extension gap was measured as 23mm. The knee was then brought into 90 degrees of flexion and the ligament elementary instructional coach was once again placed. Under the same amount of force the flexion gap was measured. The Attune specific jig was placed and the flexion gap was made to match the extension gap. The femur was sized as a size 5. The 4-in-1 cutting guide was the placed. An irvin wing was used to confirm appropriate position of the anterior cut to avoid notching. This cutting guide was ensured to be flush on the cut surface and then pinned into place with headed pins. While protecting the soft tissues, quad tendon, and collateral ligaments, the anterior and posterior cuts were performed with a saw. The central two pins were removed and the posterior and anterior chamfers were cut next. The notch-cutting guide was placed. This was pinned to lateralize the femoral component as much as possible while keeping it flush on the cut surface. This was then pinned into position. A saw was used to make the notch cut. A rasp smoothed the cut surfaces. The medial and lateral menisci were removed. A trial femoral component was then inserted, impacted down to the cut surfaces, and the lug holes were drilled. A provisional trial tibial component was placed and the knee was brought through range of motion. There was noted to be excellent extension and flexion. The polyethylene was trialed until there was good flexion and extension with excellent stability to the medial and lateral collaterals. The patella was tracking without thumbs. A size 10mm polyethylene component provided the best range of motion and stability with less than 2mm gapping with medial and lateral stress and full extension without significant hyperextension. The tibial cut surface was fully exposed. The tibia was then sized as a 5 allowing for complete coverage of the tibial cut surface. The tibia had been previously marked during trialing to correspond to the center of the tibial component to help with rotation. The trial was aligned to this shaquille, approximately rotated to the medial 1/3rd of the tibial tubercle. The trial was pinned into place. The tibia was prepared with a reamer and a keel punch and lug holes. The knee was then brought into extension and the patella was measured as 21mm. Using the patellar clamp and cut guide, this was resected to a flat surface with at least 13mm of thickness remaining. The size 29 patella fit the best. This was oriented and then clamped into position. The lugs were drilled. The trial components were removed. The final components were opened on the back table. The periosteal and capsular tissues, especially posteriorly, around the knee were then systematically injected with a periarticular cocktail consisting of 246mg of Ropivacaine, 0.5mg of Epinephrine, 0.08mg of Clonidine, and 30mg of Ketorolac, diluted to 100cc. On the back table, with the implants opened, the cement was mixed. One batch of high viscosity cement was prepared with vacuum assistance. After the cement was ready a small amount was placed on the cut surface of the patella and the patellar button was clamped into position and held. While the cement was hardening, the cementless knee components were placed. Starting with the tibial component, the tibia was subluxed anteriorly and the lug holes of the component were lined up. The tibia was then impacted with an impactor and mallet until the tibial component was in contact with the tibia. Then, the femoral component was inserted. The lug holes were aligned and the component was impacted into position. The final polyethylene component was inserted. The knee was irrigated with Surgiphor Betadine solution. This was allowed to sit in the knee for 3 minutes and then it was thoroughly irrigated out with saline. After the cement had finally cured, approximately 15min, the clamp was removed from the patella and the knee was taken through range of motion. The patella was tracking with a no-thumbs technique. The capsule was then reapproximated with a No. 1 Vicryl at multiple locations. The capsule was finally closed with a No. 2 Stratafix, barbed suture. Deep tissues were then reapproximated with 0 Vicryl and 2-0 Vicryl. The skin was closed with a running 3-0 Monocryl in a subcuticular fashion. This was reinforced with skin glue. A Mepilex silver dressing was applied along with a [id number]-[id number] JULIO CESAR wrap. A CryoCuff was applied. Essie was transferred to the hospital bed without difficulty an suffering no apparent complication. Essie has a good prognosis. Physical therapy will start today and without restrictions, weight-bearing as tolerated. Aspirin 81mg BID will be used for DVT prophylaxis.
--- NOTE | 2023-04-26 15:20 | W.PM.DSUDISC ---
Date of service: 04/26/23 Time of Service: 14:30 Discharge Plan Disposition Patient Disposition: Home Condition: Good Discharge Details Reason For Visit: R TKR Attending Provider: Mark Cowan Primary Care Provider: Alexandria Finn Home Meds and New Rx's Prescriptions: New celecoxib 200 mg capsule 200 mg PO BID Qty: 60 0RF aspirin 81 mg tablet,delayed release (DR/EC) 81 mg PO BID Qty: 60 0RF acetaminophen 500 mg tablet 1,000 mg PO TID Qty: 90 3RF dexamethasone 4 mg tablet 4 mg PO DAILY Qty: 2 0RF gabapentin 300 mg capsule 300 mg PO QHS Qty: 14 0RF oxycodone 5 mg tablet 5 mg PO Q4H MDD 6 tabs PRN (Reason: pain) Qty: 20 0RF Continued ketoconazole 2 % cream 1 applic topical DAILY naug-akbsx-eoa-D3-hyal-esvin bor 750 mg-100 mg- 25 mcg tablet 1 tab PO BID xvawokm-spvpzyfft-all D3-boron 400 mg-133 mg- 6.67 mcg-1 mg capsule 1 cap PO DAILY metoprolol succinate 25 mg tablet extended release 24 hr 12.5 mg PO BID calcium carbonate 600 MG tablet 1 tab PO BID cholecalciferol (vitamin D3) 2,000 UNIT tablet 1 tab PO DAILY omeprazole 20 mg capsule,delayed release(DR/EC) 20 mg PO DAILY Discontinued aspirin [Adult Aspirin Regimen] 81 mg tablet,delayed release (DR/EC) 81 mg PO DAILY diphenhydramine-acetaminophen [Tylenol PM Extra Strength] 1 EACH tablet 2 tab PO HS Discharge Instructions Additional Instructions: Total Knee Discharge Instructions Activity: The most important activity is to walk and to work on gentle motion (both flexion and extension). You should try to take short walks a few times a day. It is important that when resting you work on keeping the knee straight. Avoid putting a pillow behind the knee as this will encourage flexion. Work on range of motion exercises as provided by Physical Therapy. - Start outpatient physical therapy within 2 weeks. - You should wear the NIMESH hose on both legs for 2 weeks. You may remove these at night. You may also use any compression sock in place of the NIMESH hose. - Utilize [employer] to review exercises, see videos on exercises and obtain basic information pertaining to your surgery and your recovery. Dressing: Remove the Casey wrap by 2 days after your surgery and put on the NIMESH stocking given to you from the hospital. Keep the surgical dressing (underneath the CASEY wrap) in place for at least one week. After the first week it may be removed and replaced with light gauze and tape or nothing. The wound and dressing may get wet after 3 days but avoid soaking the dressing or otherwise it will need to be changed. Many people prefer covering the dressing with cling wrap (saran wrap) to minimize it from getting soaked. If it gets wet, just pat dry. If it starts to peel off then it will need to be changed. Medications: - You should take Tylenol and anti-inflammatory Celebrex as your primary pain control medications. If the Celebrex is too expensive or not covered, please call the office for another alternative (Advil/Ibuprofen or Naproxen/Aleve) - You have been prescribed a stronger pain medication Oxycodone for breakthrough pain, take as needed as prescribed. - You will continue your omeprazole to help reduce stomach acid and reflux. - You have been prescribed Gabapentin to take at night for restlessness and nerve pain. - You will be taking Aspirin 81mg twice a day for DVT prevention unless instructed otherwise. - You have also been prescribed Decadron to take to control post-operative nausea and pain. You will start this tomorrow. - If you have constipation you should take Colace or Miralax (both inra-cpw-fhfgver). It takes most people 3-4 days to have a bowel movement. Follow-up: 2 weeks If you have any acute concerns or questions, please do not hesitate to contact the office at [phone]. You may contact Dr. Cowan with any questions after hours through the hospital at [phone] or on his cell phone at [phone]. Stand Alone Forms: Anesthesia Discharge Inst., Anes.Nerve Block Instructions, Tamiko Alvarez (DSU) Referrals: Mark Cowan MD [ [facility] STAFF PHYSICIAN] - Equipment/Supplies: Walker Activity:: Activity as Tolerated Shower/Bathe:: 72 hours Diet:: As Tolerated Discharge Orders Discharge Orders: Discharge Order (Routine); Ordered 04/26/23 Ordered By: Mark Cowan DS: Diagnosis Discharge Diagnosis (1) Degenerative joint disease of right knee: Status: Chronic
--- NOTE | 2023-04-26 16:32 | PT.INIE ---
Date of service: 04/26/23 Time of Service: 15:06 PT Notes Visit Reasons: R TKR Physical Therapy Day Surgery Initial Evaluation Date: 04/26/2023 Referring Doctor: PAMELLA Black PT Orders: PT CONSULT: S/P Ortho surgery Precautions: WBAT on right LE with AD. Patient Profile/Admitting Diagnosis: Essie is a 77-year-old female with degenerative joint disease of the right knee and is status post right total knee arthroplasty on postoperative day 0. PMHX: Surgical History?(Updated 03/04/23 @ 15:13 by Aure Ho) History of knee surgery Right knee patella stabilizing 1998 Dr Vora Social History/Home Situation: Lives with Shailesh in a private home with 4 steps to enter with rails on both sides. Independent of all aspects of ADLs prior to surgery. Equipment Owned/DME: None Subjective: Reports wooziness that may be due to the Dilaudid medication that she had in the PACU. She is willing to slowly work with PT to get the walking and stairs training done. Hopeful to go home as soon as she is cleared to do so. Reports 2?3/10 pain in the right knee. Objective: General Observation: Resting in bed. Casey wraps to right LE. Cryocuuff to right knee. TEDS to the left leg. Mental Status: Alert and oriented x 4 Pain: 1-2/10 pain in the R knee at rest and with movement ROM: Right Lower Extremity: Hip flexion WFL. Hip abduction WFL. Knee flexion 10 degrees to 100 degrees. Knee extension about -10 degrees. Ankle dorsiflexion WFL. Ankle plantarflexion WFL. Left Lower Extremity: Hip flexion WFL. Hip abduction WFL. Knee flexion WFL. Ankle dorsiflexion WFL. Ankle plantarflexion WFL. Strength: Right Lower Extremity: Hip flexors 4/5. Hip abductors 4/5. Knee flexors 3-/5. Knee extensors 3-/5. Ankle dorsiflexors 5/5. Ankle plantarflexors 5/5. Left Lower Extremity:Hip flexors 5/5. Hip abductors 5/5. Knee flexors 5/5. Knee extensors 5/5. Ankle dorsiflexors 5/5. Ankle plantarflexors 5/5. Sensation: Intact as to pain and light pressure in bilateral lower extremities Bed Mobility/Transfers: Supine to sit standby assist Sit to stand contact-guard assist with FWW Stand to sit standby assist with FWW Bed to chair standby assist with FWW Gait: Tolerated 150 feet of level surface ambulation using front-wheeled walker with standby assist, step through gait pattern. No LOB. Good quad activation. Complained of wooziness that somehow subsided later in the walk. Stairs: Up and down 3 x 4 inch steps and 2 x 6 inch steps while holding onto bilateral rails with step to gait pattern requiring contact-guard assist and minimal verbal cueing for correct technique. Balance: Static Sitting: Normal Dynamic Sitting: Normal Static Standing: Fair Dynamic Standing: Fair Special Tests: Mobility Limitations Standardized Measure [facility]-PAC 6 clicks Basic Mobility Inpatient Short Form: Raw Score: 20 CMS Score: 36% deficit Informed Consent/Education: Patient instructed in purpose of PT consult. Packet containing TKA exercise protocol has been given to patient. Education and training on initial set of exercises that can be done at home have been completed with patient. Trained patient with correct performance of exercises below to maximize motor control, joint flexibility, soft tissue extensibility of the R knee musculature. Supine quads sets x 5 with 5 sh Supine heels slides x 5 Supine ankle DF/PF x 10 Small range straight leg raise x 5 Seated marches x 5 Assessment: Patient requires the use of a front wheeled walker to maximize independence and reduce fall risk. Patient presents with clinical signs and symptoms consistent with current/admitting diagnoses that have resulted to mobility limitations, gait instability, generalized weakness, and impairment of motor control as demonstrated by the following impairment level findings: 1. Decreased strength to right knee major muscle groups 2. Impaired standing balance 3. Limitation of joint range of motion in right knee Impairments are contributing to the following functional limitations: 1. Inability to safely ambulate without assistive device 2. Increase completion time for mobility ADL performance 3. Increased fall risk Patient is assessed as a 53034 moderate complexity based on the following: History: 77-year-old female with impairment level findings, functional limitations, and past medical history as indicated above Examination: Demonstrable impairment in strength, balance, and mobility level with underlying impairments and functional limitations as documented above Presentation: Evolving Decision Makin moderate complexity Goals: N/A. PT evaluation and 1-2 treatment sessions only for functional mobility training using recommended AD and for HEP instruction. Plan of Care/Treatment Plan: N/A. PT evaluation and 1-2 treatment session only for functional mobility training using recommended AD and for HEP instruction. DISCHARGE RECOMMENDATIONS: Home when medically cleared by orthopedic surgeon. Recommend outpatient PT services in order to optimize functional mobility outcomes and facilitate return to independent community ambulation without an assistive device. TREATMENT CODE/TIME: 92685 x 20 minutes (1 unit), 97537 x 21 minutes (1 unit) beginning at 15:06 PM. Thank you for the opportunity to participate in the care of this patient. Lety Garner PT, DPT, CLT [facility] [place], [place]
== END 2023-04-26 16:15 | disposition home or self-care (01) ==
PROVIDERS: PCP Nurse Practitioner Family; Visit Provider Student in an Organized Health Care Education/Training Program
PROC: (CPT 27447; principal; 2023-04-26 09:30)
DX: M17.11 Unilateral primary osteoarthritis, right knee (principal); E78.5 Hyperlipidemia, unspecified; K21.9 Gastro-esophageal reflux disease without esophagitis; I49.1 Atrial premature depolarization
CPT/HCPCS: 27447; 20985; C1776; 76942; 97162; 97530; J0690; J1100; J1170; J2371; J2405; J2704

== ENCOUNTER 2023-05-09 12:10 | Outpatient (CLI) | payer MEDICARE, SELFPAY ==
--- NOTE | 2023-05-09 11:20 | DI.RAD_ITS ---
Exam(s) XR KNEE RT 1V XR STANDING ALIGNMENT EXAM: XR STANDING ALIGNMENT CLINICAL HISTORY: 1st post op R TKA. TECHNIQUE: 2D digital imaging was performed. Standing AP views were performed from the pelvis throu gh the ankles. Lateral view right knee COMPARISON: CR XR STANDING ALIGNMENT from 04/21/2023 CR XR KNEE RT 1V from 05/09/2023 FINDINGS: BONES: No acute fracture is present. No bony destructive lesion is seen. Leg length discrepancy: The left femoral head projects a few millimeters superior to the right. JOINTS: Knees: Status post placement of right knee prosthesis. The alignment appears satisfactory. Left knee shows mild degenerative changes. The ankle joints are unremarkable. The hip joints show mild degenerative changes. SOFT TISSUE: Mild soft tissue edema right knee.. IMPRESSION: Status post placement of right knee prosthesis Mild leg length discrepancy. DATA REPOSITORY: RADIATION DOSE DELIVERED:
== END 2023-05-09 12:11 | disposition home or self-care (01) ==
LOC: DIORS 12:11
PROVIDERS: PCP Nurse Practitioner Family; Referring Provider Nurse Practitioner Family; Visit Provider Physician Assistant
DX: Z96.651 Presence of right artificial knee joint (principal); Z47.1 Aftercare following joint replacement surgery
CPT/HCPCS: 73560; 77073

== ENCOUNTER → 2023-06-06 11:02 | Outpatient (BNVA) | payer MEDICARE, SELFPAY | PROVIDERS: PCP Nurse Practitioner Family; Referring Provider Nurse Practitioner Family; Visit Provider Student in an Organized Health Care Education/Training Program | DX: Z47.1 Aftercare following joint replacement surgery (principal); Z96.651 Presence of right artificial knee joint ==

== ENCOUNTER → 2023-07-18 10:18 | Outpatient (BNVA) | payer MEDICARE, SELFPAY | PROVIDERS: PCP Nurse Practitioner Family; Visit Provider Student in an Organized Health Care Education/Training Program | DX: Z47.1 Aftercare following joint replacement surgery (principal); Z96.651 Presence of right artificial knee joint ==

== ENCOUNTER → 2023-09-23 01:44 | Outpatient (CLI) | payer MEDICARE, SELFPAY ==
--- NOTE | 2023-09-23 | DI.MAMMO_ITS ---
Exam(s) MAMMO SCREENING EXAM: MAMMO SCREENING CLINICAL HISTORY: SCREENING Z12.39. TECHNIQUE: Bilateral full field digital CC and MLO mammographic images were obtained with 3D tomosyn thesis and utilizing computer aided detection (CAD). COMPARISON: Prior mammograms were reviewed. FINDINGS: There has been no significant change in the appearance and distribution of the fibroglandular tissue. Benign-appearing microcalcification group in the right breast is again noted. There are no new spiculated masses nor malignant appearing microcalcification groups. There is no significant architectural distortion nor skin thickening-retraction. IMPRESSION: No radiographic evidence of malignancy. BI-RADS Category 2 - Benign Findings Breast Density - Category B - Scattered areas of fibroglandular density Breast density Category C or D implies that the patient has dense breast tissue. Dense breast tissue can make it harder to find cancer on a mammogram. Dense breast tissue is also associated with an incr eased risk of breast cancer. This information about the result of the mammogram report was provided to the patient to raise their awareness. Use this report when you speak with the patient about their risks for breast cancer, which includes their family history. At that time, you may recommend additional screening tests (Ultrasoun d or MRI) as these tests may add significant information. A negative radiographic report should not delay biopsy if a dominant or clinically suspicious mass is present. Up to ten percent of cancers are not identified on mammography. A negative report may reinforce clinical impression. Adenosis and dense breasts may obscure an underlying neoplasm. False positive reports average 6 to 10%. Patient will receive a letter notifying them of these results.
== END ==
PROVIDERS: PCP Nurse Practitioner Family; Visit Provider Nurse Practitioner Family
DX: Z12.31 Encounter for screening mammogram for malignant neoplasm of breast (principal)
CPT/HCPCS: 77063; 77067

== ENCOUNTER 2024-04-27 11:07 | Outpatient (CLI) | payer MEDICARE, SELFPAY ==
--- NOTE | 2024-04-27 10:30 | DI.RAD_ITS ---
Exam(s) XR KNEE RT 2V AP,LAT EXAM: XR KNEE RT 2V AP,LAT CLINICAL HISTORY: right TKA. TECHNIQUE: 2D digital imaging was performed. Two images were obtained. AP and lateral views were ob tained. COMPARISON: CR XR STANDING ALIGNMENT from 05/09/2023 CR XR KNEE RT 1V from 05/09/2023 FINDINGS: BONES: There are stable post operative changes of a right total knee replacement present. No fractur e or dislocation. JOINTS: The orthopedic hardware is in good position. No evidence of hardware loosening. SOFT TISSUE: Normal. IMPRESSION: Stable right total knee replacement. DATA REPOSITORY: RADIATION DOSE DELIVERED:
== END 2024-04-27 11:08 | disposition home or self-care (01) ==
LOC: DIORS 11:13
PROVIDERS: PCP Nurse Practitioner Family; Visit Provider Physician Assistant
DX: Z47.1 Aftercare following joint replacement surgery (principal); Z96.651 Presence of right artificial knee joint
CPT/HCPCS: 99213; 73560

== ENCOUNTER 2024-08-30 16:06 | Outpatient (REF) | payer MEDICARE, SELFPAY ==
[2024-08-30 14:30] LABS: Abs Immature Grans 0.02 10^3/uL (0.0-0.06); Absolute Basophil Count 0.05 10^3/uL (0.0-0.2); Absolute Lymphocyte Count 1.45 10^3/uL (1.2-3.4); Absolute Neutrophil Count 7.12 10^3/uL (1.2-6.7); Basophils % 0.5 %; HCT 40.2 % (36.0-46.0); HGB 13.2 g/dL (11.2-15.7); Immature Grans % 0.2 %; Lymphocytes % 14.9 %; MCH 30.7 pg (27.0-33.0); MCHC 32.8 % (32.0-36.0); MCV 94 fL (80-95); Monocytes % 10.3 %; Neutrophils % 73.1 %; RDW 12.8 % (11.7-14.6); RDW-SD 43.8 fL; WBC 9.74 10^3/uL (4.4-10.8)
[2024-08-30 14:38] LABS: ESR 40 mm/hr (0-30)
[2024-08-30 14:42] LABS: Platelet Count 380 10^3/uL (130-400)
[2024-08-30 15:09] LABS: ALT 24 U/L (14-59); AST 20 U/L (15-37); Albumin 3.6 g/dL (3.4-5.0); Alkaline Phosphatase 115 U/L (46-116); Anion Gap 12.1 mmol/L (3-11); BUN 19 mg/dL (7-18); Bilirubin, Total 0.32 mg/dL (0.2-1.0); CO2 25.9 mmol/L (21.0-32.0); CREATININE 0.8 mg/dL (0.55-1.02); Calcium 9.9 mg/dL (8.5-10.1); Chloride 103 mmol/L (98-107); Ferritin 75 ng/mL (8-252); Glucose 110 mg/dL (74-106); Potassium 4.5 mmol/L (3.5-5.1); Sodium 141 mmol/L (136-145); TSH (W/Ref FT4) 0.73 uIU/mL (0.36-3.74); Total Protein 7.3 g/dL (6.4-8.2); Vitamin D 25 Total 56.8 ng/mL (30-100)
[2024-08-30 15:20] LABS: Iron 63 ug/dL (50-170); Total Iron Binding Capacity 376 ug/dL (250-450); Transferrin Sat 17 % (15-50)
[2024-08-30 22:29] LABS: Rheumatoid Factor <8.6 IU/mL (<12.0)
[2024-08-31 11:50] LABS: Lyme Ab w Rflx to Lyme Confirm Negative (Negative)
[2024-09-02 15:03] LABS: Anaplasma phagocytophilum Negative (Negative); B. miyamotoi PCR Negative (Negative); Babesia divergens/MO-1 Negative (Negative); Babesia duncani Negative (Negative); Babesia microti Negative (Negative); Ehrlichia chaffeensis Negative (Negative); Ehrlichia ewingii/canis Negative (Negative); Ehrlichia muris eauclairensis Negative (Negative)
== END 2024-08-30 16:07 | disposition home or self-care (01) ==
LOC: NCHCN 16:06
PROVIDERS: PCP Nurse Practitioner Family; Visit Provider Nurse Practitioner Family
DX: M79.18 Myalgia, other site (principal)
CPT/HCPCS: 80053; 82306; 85652; 87798; 82728; 83540; 83550; 83735; 84443; 85025; 86431; 86618

== ENCOUNTER 2024-10-01 15:23 | Outpatient (REF) | payer MEDICARE, SELFPAY ==
[2024-10-01 16:51] LABS: ESR 8 mm/hr (0-30)
== END 2024-10-01 15:24 | disposition home or self-care (01) ==
LOC: NCHCN 15:23
PROVIDERS: PCP Nurse Practitioner Family; Visit Provider Nurse Practitioner Family
DX: M35.3 Polymyalgia rheumatica (principal)
CPT/HCPCS: 85652

== ENCOUNTER 2024-10-16 16:37 | Outpatient (REF) | payer MEDICARE, SELFPAY ==
[2024-10-16 22:21] LABS: ESR 32 mm/hr (0-30)
[2024-10-18 13:35] LABS: ANA Interpretation Negative (Negative)
== END 2024-10-16 16:38 | disposition home or self-care (01) ==
LOC: NCHCN 16:37
PROVIDERS: PCP Nurse Practitioner Family; Visit Provider Nurse Practitioner Family
DX: M35.3 Polymyalgia rheumatica (principal)
CPT/HCPCS: 85652; 86038

== ENCOUNTER 2024-11-06 02:29 | Outpatient (CLI) | payer MEDICARE, SELFPAY ==
--- NOTE | 2024-11-06 | DI.MAMMO_ITS ---
Exam(s) MAMMO SCREENING EXAM: MAMMO SCREENING CLINICAL HISTORY: Z12.39 Screening. TECHNIQUE: Bilateral full field digital CC and MLO mammographic images were obtained with 3D tomosyn thesis and utilizing computer aided detection (CAD). COMPARISON: Prior mammograms were reviewed. FINDINGS: There has been no significant change in the appearance and distribution of the fibroglandular tissue. There are no new left breast findings. Right breast there is a microcalcifications which has slightly increased from previous studies. Spot Mag view recommended as well as straight lateral view. There is no significant architectural distortion nor skin thickening-retraction. IMPRESSION: 1. No radiographic evidence of malignancy in left breast. 2. Increasing number of microcalcifications in a small microcalcification group in the right breast. Additional 2D Spot Mag views of this microcalcification group are recommended. BI-RADS Category 0 - Incomplete: Need additional imaging evaluation Breast Density - Category B - Scattered areas of fibroglandular density Breast density Category C or D implies that the patient has dense breast tissue. Dense breast tissue can make it harder to find cancer on a mammogram. Dense breast tissue is also associated with an incr eased risk of breast cancer. This information about the result of the mammogram report was provided to the patient to raise their awareness. Use this report when you speak with the patient about their risks for breast cancer, which includes their family history. At that time, you may recommend additional screening tests (Ultrasoun d or MRI) as these tests may add significant information. A negative radiographic report should not delay biopsy if a dominant or clinically suspicious mass is present. Up to ten percent of cancers are not identified on mammography. A negative report may reinforce clinical impression. Adenosis and dense breasts may obscure an underlying neoplasm. False positive reports average 6 to 10%. Patient will receive a letter notifying them of these results.
== END 2024-11-06 02:49 ==
LOC: DI 02:29
PROVIDERS: PCP Nurse Practitioner Family; Visit Provider Nurse Practitioner Family
DX: Z12.31 Encounter for screening mammogram for malignant neoplasm of breast (principal); R92.323 Mammographic fibroglandular density, bilateral breasts
CPT/HCPCS: 77063; 77067

== ENCOUNTER 2024-11-12 01:31 | Outpatient (CLI) | payer MEDICARE, SELFPAY ==
--- NOTE | 2024-11-12 | DI.MAMMO_ITS ---
Exam(s) MAMMO SCREEN CALL BACK UNI EXAM: MAMMO SCREEN CALL BACK UNI CLINICAL HISTORY: Increasing microcalcifications, rt breast. TECHNIQUE: Magnification craniocaudal and mediolateral oblique Full Field Digital Mammography views of the right breast with Computer Aided Diagnosis. COMPARISON: Comparison is made with prior examinations. FINDINGS: Mammography/Tomosynthesis: Masses/Architectural Distortion: None seen. Microcalcifictions: No suspicious pleomorphic-type are seen. There is again seen a collection of calc ifications at the 6 o'clock position of the right breast posteriorly. Skin Thickening/Nipple Retraction: None. IMPRESSION: 1. No definite evidence of malignancy is noted. 2. A six-month follow-up right mammogram is requested for re-evaluation of these microcalcifications. 3. The findings were discussed with the patient on the date of the examination. BI-RADS Category 3 - 6 month - Probably Benign Finding: Recommend follow-up imaging in 6 months Breast Density - Category B - Scattered areas of fibroglandular density Breast density Category C or D implies that the patient has dense breast tissue. Dense breast tissue can make it harder to find cancer on a mammogram. Dense breast tissue is also associated with an incr eased risk of breast cancer. This information about the result of the mammogram report was provided to the patient to raise their awareness. Use this report when you speak with the patient about their risks for breast cancer, which includes their family history. At that time, you may recommend additional screening tests (Ultrasoun d or MRI) as these tests may add significant information. A negative radiographic report should not delay biopsy if a dominant or clinically suspicious mass is present. Up to ten percent of cancers are not identified on mammography. A negative report may reinforce clinical impression. Adenosis and dense breasts may obscure an underlying neoplasm. False positive reports average 6 to 10%. Patient will receive a letter notifying them of these results.
== END 2024-11-12 01:51 ==
LOC: DI 01:31
PROVIDERS: PCP Nurse Practitioner Family; Visit Provider Nurse Practitioner Family
DX: Z12.31 Encounter for screening mammogram for malignant neoplasm of breast (principal); R92.323 Mammographic fibroglandular density, bilateral breasts; D24.1 Benign neoplasm of right breast
CPT/HCPCS: 77063; 77067

== ENCOUNTER 2025-05-15 17:09 | Outpatient (CLI) | payer MEDICARE, SELFPAY ==
--- NOTE | 2025-05-15 | DI.MAMMO_ITS ---
Exam(s) MG MAMMO DIAGNOSTIC UNI EXAM: MG MAMMO DIAGNOSTIC UNI CLINICAL HISTORY: RT BREAST 6 MO FU R92.2 INCONCLUSIVE MAMMO TECHNIQUE: Right cc and MLO mammogram images were performed according to the usual protocol including computer analysis with CAD system, tomosynthesis and C- view imaging. COMPARISON: MG Screening Bilat Mammo from 07/08/2017 MG MG MAMMO SCREENING from 09/12/2020 MG MG MAMMO SCREENING from 09/14/2021 MG MG MAMMO SCREENING from 09/23/2023 MG MG MAMMO SCREENING from 11/06/2024 MG MG MAMMO SCREEN CALL BACK UNI from 11/12/2024 FINDINGS: The right breast is composed of scattered fibroglandular densities, Breast Density category B. No suspicious masses or suspicious microcalcifications are seen. Stable appearance benign cluster of calcifications in the central inferior right breast. No skin thickening or abnormal axillary lymph nodes are seen. IMPRESSION: BI-RADS Category 2 - Benign Findings Bilateral screening mammography is recommended, due in October of 2025. Breast Density - Category B - There are scattered areas of fibroglandular density. Breast density Category C or D implies that the patient has dense breast tissue. Dense breast tissue can make it harder to find cancer on a mammogram. Dense breast tissue is also associated with an increased risk of breast cancer. This information about the result of the mammogram report was provided to the patient to raise their awareness. Use this report when you speak with the patient about their risks for breast cancer, which includes their family history. At that time, you may recommend additional screening tests (Ultrasound or MRI) as these tests may add significant information. A negative radiographic report should not delay biopsy if a dominant or clinically suspicious mass is present. Up to ten percent of cancers are not identified on mammography. A negative report may reinforce clinical impression. Adenosis and dense breasts may obscure an underlying neoplasm. False positive reports average 6 to 10%. Patient will receive a letter notifying them of these results.
== END 2025-05-15 17:29 ==
LOC: DI 17:10
PROVIDERS: PCP Nurse Practitioner Family; Visit Provider Nurse Practitioner Family
DX: Z12.31 Encounter for screening mammogram for malignant neoplasm of breast (principal); R92.321 Mammographic fibroglandular density, right breast
CPT/HCPCS: 77061; 77065; G0279

== ENCOUNTER 2025-09-03 15:18 | Outpatient (REF) | payer MEDICARE, SELFPAY ==
[2025-09-03 14:42] LABS: Abs Immature Grans 0.03 10^3/uL (0.0-0.06); HCT 42.9 % (36.0-46.0); HGB 14.0 g/dL (11.2-15.7); Immature Grans % 0.3 %; MCH 31.7 pg (27.0-33.0); MCHC 32.6 % (32.0-36.0); MCV 97 fL (80-95); MPV 10.7 fL (8.0-11.0); Platelet Count 257 10^3/uL (130-400); RBC 4.41 10^6/uL (3.93-5.22); RDW 13.7 % (11.7-14.6); RDW-SD 49.2 fL; WBC 10.41 10^3/uL (4.4-10.8)
[2025-09-03 15:19] LABS: Vitamin D 25 Total 46 ng/mL (30-100)
[2025-09-03 15:25] LABS: ALT 19 U/L (10-49); AST 24 U/L (<34); Albumin 4.2 g/dL (3.2-5.0); Alkaline Phosphatase 59 U/L (46-116); Anion Gap 10.6 mmol/L (3-11); BUN 22 mg/dL (9-23); Bilirubin, Total 0.6 mg/dL (0.2-1.2); CO2 27.4 mmol/L (20.0-31.0); Calcium 10.0 mg/dL (8.3-10.6); Chloride 106 mmol/L (98-107); Cholesterol 257 mg/dL (<200); Glucose 103 mg/dL (74-106); HDL Cholesterol 88 mg/dL (>40); Potassium 4.2 mmol/L (3.5-5.1); Sodium 144 mmol/L (136-145); Total Protein 6.4 g/dL (5.7-8.2)
== END 2025-09-03 15:19 | disposition home or self-care (01) ==
LOC: NCHCN 15:18
PROVIDERS: PCP Nurse Practitioner Family; Visit Provider Nurse Practitioner Family
DX: E78.5 Hyperlipidemia, unspecified (principal); Z51.81 Encounter for therapeutic drug level monitoring; M85.80 Other specified disorders of bone density and structure, unspecified site
CPT/HCPCS: 80053; 80061; 82306; 85025